=== PATIENT | female | born 1950 | race Two or more races ===

== ENCOUNTER 2022-10-17 11:01 | Inpatient (IN) | payer OTHER ==
[~2022-10-17] VITALS: Ht 157.5 cm; Wt 86.2 kg
[2022-10-17] MEDS ORDERED: IRBESARTAN-HCT1 EAC1 PO (14:03)
[2022-10-17] MEDS ORDERED: METFORMIN HCL500 M3 PO (14:03)
[2022-10-17] MEDS ORDERED: TOPROL XL25 M1 PO (14:03)
[2022-10-17] MEDS ORDERED: ROSUVASTATIN CAL5 MG PO (14:04)
[2022-10-17] MEDS ORDERED: SINGULAIR10 MG PO (14:05)
[2022-10-17] MEDS ORDERED: ESCITALOPRAM OX10 MG PO (14:05)
[2022-10-17] MEDS ORDERED: CLONAZEPAM0.5 MG PO (14:06)
[2022-10-17] MEDS ORDERED: NORVASC5 MG PO (14:06)
[2022-10-22] MEDS ORDERED: ROSUVASTATIN CA40 MG (10:38)
[2022-10-22] MEDS ORDERED: METOPROLOL SUCC25 MG (10:38)
[2022-10-22] MEDS ORDERED: RESTORIL30 MG (10:38)
[2022-10-22] MEDS ORDERED: KETOROLAC TROMET5 M1 (10:39)
[2022-10-22] MEDS ORDERED: PATADAY2.5 ML (10:39)
[2022-10-22] MEDS ORDERED: DULOXETINE HCL30 MG (10:39)
[2022-10-22] MEDS ORDERED: VITAMIN D3125 MC1 (10:39)
[2022-10-23] MEDS ORDERED: INTEGRA PLUS C1 EACH PO (08:03)
[2022-10-23] MEDS ORDERED: OXYC1TAB9 PO (08:03)
[2022-10-23] MEDS ORDERED: BACTRIM DS TAB1 EACH PO (08:03)
[2022-10-23] MEDS ORDERED: XARELTO10 MG PO (08:03)
== END 2022-10-23 17:18 | DRG 470 ==
LOC: SURG 10-21 05:21 → O/R 10-21 05:21 → SURH 10-21 11:15 → SURG 10-21 19:21
PROVIDERS: ADMIT Orthopaedic Surgery Sports Medicine; ATTEND Orthopaedic Surgery Sports Medicine
PROC: 0SRC0J9 Replacement of Right Knee Joint with Synthetic Substitute, Cemented, Open Approach (ICD-10-PCS; principal; 2022-10-21 16:45)
DX: M17.11 Unilateral primary osteoarthritis, right knee (principal); I10 Essential (primary) hypertension; E11.9 Type 2 diabetes mellitus without complications; J45.909 Unspecified asthma, uncomplicated; Z79.84 Long term (current) use of oral hypoglycemic drugs